=== PATIENT | female | born 1990 | race Caucasian/White ===

== ENCOUNTER 2018-04-28 14:39 | Emergency (ER) | payer SELFPAY ==
--- NOTE | 2018-04-28 15:06 | ER Document Report ---
ED Psych Disorder / Suicide - General TRAVEL OUTSIDE OF THE [place] IN LAST 30 DAYS: No <MORALES TRACEY - Last Filed: 04/28/18 15:04> <BLADEJE MARQUIS - Last Filed: 04/28/18 17:58> <KENNETH HANSON - Last Filed: 04/28/18 20:08> - General Chief Complaint: Psych Problem Stated Complaint: PSYCH EVAL/SUICIDAL IDEATION Time Seen by Provider: 04/28/18 15:03 Notes: Chief complaint: Suicidal History of complain:( obtained from----patient) 27 years old female with a history of depression and previous history of suicidal ideation, was started with Prozac recently and last 2 days not feeling well today feeling like want to end her life. Feeling depressed deeply. I want to end her life by taking some pills. Therefore she was brought to the ED. Onset: As above gradual Duration: Last 2 days Severity: Severe Quality: Not applicable Context: Possibly medication induced Exacerbating factor and relieving factors: None REVIEW OF SYSTEMS: CONSTITUTIONAL : Denies fever, chills, or sweats. Denies recent illness. EENT: Denies eye, ear, throat, or mouth pain or symptoms. Denies nasal or sinus congestion or discharge. Denies throat, tongue, or mouth swelling or difficulty swallowing. CARDIOVASCULAR: Denies chest pain. Denies palpitations or racing or irregular heart beat. Denies ankle edema. RESPIRATORY: Denies cough, cold, or chest congestion. Denies shortness of breath, difficulty breathing, or wheezing. GASTROINTESTINAL: Denies distention. Denies nausea, vomiting, or diarrhea. Denies blood in vomitus, stools, or per rectum. Denies black, tarry stools. Denies constipation. GENITOURINARY: Denies difficulty urinating, painful urination, burning, frequency, blood in urine, or discharge. FEMALE GENITOURINARY: Denies vaginal bleeding, heavy or abnormal periods, irregular periods. Denies vaginal discharge or odor. MUSCULOSKELETAL: Denies back or neck pain or stiffness. Denies joint pain or swelling. SKIN: Denies rash, lesions or sores. HEMATOLOGIC : Denies easy bruising or bleeding. LYMPHATIC: Denies swollen, enlarged glands. NEUROLOGICAL: Denies confusion or altered mental status. Denies passing out or loss of consciousness. Denies dizziness or lightheadedness. Denies headache. Denies weakness or paralysis or loss of use of either side. Denies problems with gait or speech. Denies sensory loss, numbness, or tingling. Denies seizures. PSYCHIATRIC: Denies anxiety or stress. Denies depression, suicidal ideation, or homicidal ideation. ALL OTHER SYSTEMS REVIEWED AND NEGATIVE. PHYSICAL EXAMINATION: GENERAL: Well-appearing, well-nourished and in no acute distress. HEAD: Atraumatic, normocephalic. EYES: Pupils equal round and reactive to light, extraocular movements intact, conjunctiva are normal. ENT: Nares patent, oropharynx clear without exudates. Moist mucous membranes. NECK: Normal range of motion, supple without lymphadenopathy LUNGS: Breath sounds clear to auscultation bilaterally and equal. No wheezes rales or rhonchi. HEART: Regular rate and rhythm without murmurs ABDOMEN: Soft, nontender, nondistended abdomen. No guarding, no rebound. No masses appreciated. Examination of genitals-deferred Musculoskeletal: Normal range of motion, no pitting or edema. No cyanosis. NEUROLOGICAL: Cranial nerves grossly intact. Normal speech, normal gait. Normal sensory, motor exams PSYCH: Appears depressed, suicidal, no auditory or visual hallucination, appears to be nervous and anxious. SKIN: Warm, Dry, normal turgor, no rashes or lesions noted. Dictation was performed using [employer] voice recognition software (MORALES TRACEY) Patient says that she suffered from depression for at least 10 years. She is now having suicidal ideation which comes and goes. She recently started taking Lexapro. Patient denies any other symptoms. No vomiting or diarrhea. No chest pains. Denies shortness of breath or difficulty breathing. Last menstrual cycle was about 25 days ago. History of migraine headaches with some headache now. (KENNETH HANSON) - Related Data Allergies/Adverse Reactions: cephalexin [Cephalexin] Allergy (Severe, Verified 06/27/14 22:59) Hives Cephalosporins Allergy (Severe, Verified 06/27/14 22:59) Hives Past Medical History - Social History Family History: Reviewed & Not Pertinent - Past Medical History Cardiac Medical History: Denies: Hx Coronary Artery Disease, Hx Heart Attack, Hx Hypertension Pulmonary Medical History: Denies: Hx Asthma, Hx Bronchitis, Hx COPD, Hx Pneumonia Neurological Medical History: Reports: Hx Migraine. Denies: Hx Cerebrovascular Accident Musculoskeltal Medical History: Denies Hx Arthritis Past Surgical History: Reports: Hx Genitourinary Surgery - Immunizations Hx Diphtheria, Pertussis, Tetanus Vaccination: Yes <MORALES TRACEY - Last Filed: 04/28/18 15:04> - Social History Smoking Status: Unknown if Ever Smoked Family History: Reviewed & Not Pertinent Psychiatric Medical History: Reports: Hx Depression <KENNETH HANSON - Last Filed: 04/28/18 20:08> Review of Systems <MORALES TRACEY - Last Filed: 04/28/18 15:04> <BLADEJE MARQUIS - Last Filed: 04/28/18 17:58> <KENNETH HANSON - Last Filed: 04/28/18 20:08> - Review of Systems Notes: REVIEW OF SYSTEMS: CONSTITUTIONAL : Denies fever. EENT: Denies eye, ear, nose or mouth or throat pain or other symptoms. CARDIOVASCULAR: Denies chest pain. RESPIRATORY: Denies cough, chest congestion, or shortness of breath. GASTROINTESTINAL: Denies abdominal pain or nausea, vomiting, or diarrhea. GENITOURINARY: Denies difficulty or painful urinating, urinary frequency, blood in urine. MUSCULOSKELETAL: Denies back or neck pain. Denies joint pain or swelling. SKIN: Denies rash or skin lesions. NEUROLOGICAL: Denies LOC or altered mental status. Denies headache. Denies sensory loss or motor deficits. ALL OTHER SYSTEMS REVIEWED AND NEGATIVE. (KENNETH HANSON) Physical Exam <MORALES TRACEY - Last Filed: 04/28/18 15:04> <VANESSAJE - Last Filed: 04/28/18 17:58> - Vital signs Interpretation: Hypertensive - Diastolic pressure recorded at 113 and I doubt that is accurate. Her blood pressure at discharge is 126/80. <KENNETH HANSON - Last Filed: 04/28/18 20:08> - Vital signs Vitals: Temp Pulse Resp BP Pulse Ox 98.9 F 74 18 138/112 H 98 04/28/18 14:42 04/28/18 14:42 04/28/18 14:42 04/28/18 14:42 04/28/18 14:42 - Notes Notes: PHYSICAL EXAMINATION: GENERAL: Well-appearing, in no acute distress. Appears to be somewhat depressed. Denies suicidal feeling at this moment. Vital signs are normal with the exception of an likely abnormal recorded blood pressure at triage. HEAD: Atraumatic, normocephalic. EYES: Pupils equal round and reactive to light, extraocular movements intact. ENT: oropharynx clear without exudates. Moist mucous membranes. NECK: Normal range of motion, supple. LUNGS: Breath sounds clear and equal bilaterally. HEART: Regular rate and rhythm without murmurs. ABDOMEN: Soft, nontender. No guarding or rebound. No masses. BACK: No tenderness throughout entire back. EXTREMITIES: Normal range of motion without pain. NEUROLOGICAL: Normal speech, normal gait. Normal sensory, motor, and reflex exams. Awake, alert, and oriented x3. Cranial nerves normal. PSYCH: Seems to be depressed. Does not seem to be suicidal at this time. SKIN: Warm, dry, no rashes. (KENNETH HANSON) Course - Laboratory Result Diagrams: 04/28/18 15:47 04/28/18 15:47 <JE MENDEZ - Last Filed: 04/28/18 17:58> - Laboratory Result Diagrams: 04/28/18 15:47 04/28/18 15:47 <KENNETH HANSON - Last Filed: 04/28/18 20:08> - Vital Signs Vital signs: Temp Pulse Resp BP Pulse Ox 98.9 F 61 16 126/80 H 96 04/28/18 14:42 04/28/18 18:29 04/28/18 18:29 04/28/18 18:29 04/28/18 18:29 - Laboratory Laboratory results interpreted by me: 04/28/18 04/28/18 15:47 15:47 WBC 11.0 H Salicylates < 1.0 L Acetaminophen < 10 L Discharge <MORALES TRACEY - Last Filed: 04/28/18 15:04> <JE MENDEZ - Last Filed: 04/28/18 17:58> <KENNETH HANSON - Last Filed: 04/28/18 20:08> - Discharge Clinical Impression: Depression, Anxiety, Suicidal ideation Condition: Stable Disposition: HOME, SELF-CARE Additional Instructions: Anxiety: The physician feels that some of your health problems are being caused by anxiety. Anxiety affects your health in many ways. Anxiety alone can cause palpitations, sweats, chest pains, abdominal pains, shortness of breath, and headaches. It contributes to ulcer disease, high blood pressure, irritable bowel syndrome, and has been shown to cause flare-ups of many other diseases. Anxiety is not a simple disorder to treat. If the anxiety is due to recent life stresses, you may simply need time to "work through" the changes. If the anxiety is due to an underlying unhappiness with yourself or due to psychiatric disturbance, professional help will be needed. Your physician can refer you for further help if needed. Anti-anxiety medication is occasionally given if the stress is acute or if you are having trouble sleeping. Chronic or frequent use of these medications is not a good idea because the body becomes reliant on it, preventing you from dealing with life's normal stresses. DEPRESSION: Your evaluation reveals that you have mental depression. While symptoms may be vague, they often include disturbance of sleep, fatigue, loss of appetite , and general loss of interest in life. While depression may be a side effect of drugs, or a reaction to a major change in your life, many cases have no known cause. If depression is acute, and related to a major loss in your life, you can expect it to clear completely with time. If you have been depressed a long time , are prone to repeated bouts of depression or low mood, or have been thinking of suicide, get help. Depression can be treated with anti-depressant medication and counselling. Long-term depression will often take a few weeks to clear, even with appropriate medication. Follow-up care is important. SUICIDAL IDEATION: Suicidal ideation is a common medical term for thoughts about suicide, which may be as detailed as a formulated plan, without the suicidal act itself. Although most people who undergo suicidal ideation do not commit suicide, some go on to make suicide attempts. The range of suicidal ideation varies greatly from fleeting to detailed planning, role playing, and unsuccessful attempts. While thoughts about suicide are common, most people do not carry out serious actions to commit suicide. Based upon your evaluation and discussion with you, we do not believe you are currently at risk to act upon your thoughts of suicide. You have agreed to return to the Emergency Department, at any time , if you feel inclined to act upon your suicidal thoughts. FOLLOW-UP CARE: You have been provided with scripts for alternative medications. You should take these as prescribed. you should follow up with an outpatient psychiatric provider (resource sheet provided) or at the very least with your Internal Medicine provider from [facility]. If you experience worsening or a significant change in your symptoms, notify the physician immediately, utilize mobile crisis or return to the Emergency Department at any time for re- evaluation. Prescriptions: Buspirone HCl [Buspar 10 mg Tablet] 10 mg PO QHS #10 tablet Buspirone HCl [Buspar 5 mg Tablet] 1 tab PO QAM #10 tab Citalopram Hydrobromide [Celexa 20 mg Tablet] 20 mg PO DAILY #10 tablet Referrals: [facility] [Provider Group] - Follow up as needed
[2018-04-28] MEDS ORDERED: LORAZEPAM 1 MG TABLET PO SCH ×3 (15:15→18:00)
[2018-04-28] MEDS ORDERED: LORAZEPAM 1 MG TABLET PO ONE (16:08)
[2018-04-28] MEDS ORDERED: LORAZEPAM 1 MG TABLET PO PRN (16:09)
[2018-04-28 16:20] LABS: ABSOLUTE EOSINOPHILS # (AUTO) 0.1 10^3/uL (0.0-0.6); ABSOLUTE LYMPHOCYTES (AUTO) 3.6 10^3/uL (0.5-4.7); ABSOLUTE MONOCYTES (AUTO) 0.7 10^3/uL (0.1-1.4); ABSOLUTE NEUT (AUTO) 6.6 10^3/uL (1.7-8.2); BASOPHILS % (AUTO) 0.4 % (0-2); EOSINOPHILS % (AUTO) 1.2 % (0-6); HEMOGLOBIN 14.1 g/dL (12.0-15.5); LYMPHOCYTES % (AUTO) 32.3 % (13-45); MEAN CORPUSCULAR HEMOGLOBIN 29.6 pg (27.0-33.4); MEAN CORPUSCULAR HGB CONC 34.4 g/dL (32.0-36.0); MEAN CORPUSCULAR VOLUME 86 fl (80-97); MONOCYTES % (AUTO) 6.4 % (3-13); PLATELET COUNT 362 10^3/uL (150-450); RED BLOOD COUNT 4.77 10^6/uL (3.72-5.28); RED CELL DISTRIBUTION WIDTH 11.7 % (11.5-14.0); SEGMENTED NEUTROPHILS % (AUTO) 59.7 % (42-78); TOTAL CELLS COUNTED % (AUTO) 100 %
[2018-04-28 16:26] LABS: APPEARANCE,URINE SLIGHTLY-CLOUDY; BILIRUBIN,URINE NEGATIVE (NEGATIVE); COLOR,URINE YELLOW; GLUCOSE, URINE NEGATIVE (NEGATIVE); KETONES,URINE NEGATIVE (NEGATIVE); LEUKOCYTE ESTERASE,URINE NEGATIVE (NEGATIVE); NITRITE,URINE NEGATIVE (NEGATIVE); PROTEIN,URINE NEGATIVE (NEGATIVE); URINE SPECIFIC GRAVITY 1.021; UROBILINOGEN,URINE NEGATIVE mg/dL (<2.0)
[2018-04-28 16:33] LABS: ALKALINE PHOSPHATASE 61 U/L (38-126); ASPARTATE AMINO TRANSFERASE 16 U/L (14-36); BILIRUBIN,DIRECT 0.3 mg/dL (0.0-0.4); BILIRUBIN,TOTAL 0.3 mg/dL (0.2-1.3); BLOOD UREA NITROGEN 11 mg/dL (7-20); CALCIUM 9.7 mg/dL (8.4-10.2); CARBON DIOXIDE 27 mmol/L (22-30); CHLORIDE 107 mmol/L (98-107); GLUCOSE 80 mg/dL (75-110); TOTAL PROTEIN 6.6 g/dL (6.3-8.2)
[2018-04-28 16:37] LABS: URINE AMPHETAMINES SCREEN NEGATIVE; URINE BARBITURATES SCREEN NEGATIVE; URINE BENZODIAZEPINES SCREEN NEGATIVE; URINE COCAINE SCREEN NEGATIVE; URINE MARIJUANA (THC) SCREEN NEGATIVE; URINE METHADONE SCREEN NEGATIVE; URINE PHENCYCLIDINE SCREEN NEGATIVE
--- NOTE | 2018-04-28 16:41 | PSYCHOLOGICAL NOTE ---
Psych Note - Psych Note Psych Note: Reason for consult: Increased Depression, Anxiety, SI since starting Lexapro last Friday Contact permission: Mother Alycai and Aunt at bedside Patient is a 27 year old female who presented to the ED today via mother upon [facility] recommendation for increased SI, paranoia and anxiety after starting Lexapro Friday (04/24/18). Patient she was prescribed Lexapro 20MG QHS from [facility] Randi Schwartz at [facility] Friday. Since that time she has taken it as direct until Friday when she took half of a pill due to not liking how it had been making her feel. She acknowledged the half pill did nothing for her so last night she took a whole pill and 2 Benadryl. She described how she was feeling as frantic and panicked, like she needs to do something, has had paranoid days where she thinks people are mad at her or talking about her and has woken up at night thinking someone was in the house to murder her. She noted she went to the [facility] due to having a history of depression that is not constant, the last few weeks it had increased, she had been getting frequent headaches (has history of migraines and prescribed propranolol), random vomiting, feeling really down and increased SI (thoughts of OD on propranolol, never taken action). She stated she has previously been prescribed Zoloft (took once, felt frantic and panicked, not in control, outside of body, which she said is how she feels now as well), Effexor and Wellbutrin. She admitted she never took any of them for very long. She denied previous Hospitalizations. She stated her issue now with respect to going to a provider for is she doesnt get insurance until May since she just started a new job. She identified a current stress is getting soon. Patient was alert and oriented to person, place, time and situation. Mood was anxious with congruent affect as evidenced by a little fidgety at first but did calm down (had been administered Ativan 2MG PO). She denied current SI/HI, admitted to thoughts of OD on her propranolol but NEVER taking action and denied history of attempts. She did not appear to be responding to internal stimuli as evidenced by good eye contact, answering questions appropriately when addressed, staying on topic and carrying on dialogue conversation. Thought processes were linear and organized. Conversational speech was within normal limits for rate, tone and prosody. Intellectual abilities are estimated to be average. Insight, judgment and impulse control were fair as evidenced by ability to process/discuss thoughts and feelings and clear/vivid description of what she was experiencing since starting Lexapro. Patients motherAlycia, at bedside. Patient gave verbal consent to speak freely in front of mother. Mother confirmed or agreed with everything patient said. She allowed patient to do the talking. She identified no significant family history of MH. She admitted she (mother) had been prescribed Prozac for PMS. She acknowledged herself, Aunt and fianc are natural supports who will be involved and have increased supervision/monitoring. Patient and mother agreed to allow these natural supports be in control of medications (patients, other peoples in the home, O-T-C medications) and administration. Diagnosis: 311 (F32.9) Unspecified Depressive Disorder (may be situational and related to upcoming wedding) 300.00 (F41.9) Unspecified Anxiety Disorder (may be situational and related to upcoming wedding) Impression/Plan: Patient is cleared from acute psychiatric services. She was just started on Lexapro Friday (04/24/18) from [facility]'s Internal Medicine due to having increased headaches, random vomiting, feeling really down and SI. However after taking the Lexapro the past 4 days she reported feeling "frantic, unable to sit still like she needs to do something, paranoia such as thinking people are mad at her or talking about her, and waking up in the middle of the night thinking someone was in her room trying to kill her." Plan is to stop Lexapro and provide script for another medication. Mother present (patient gave verbal permission to talk in front of mother) and noted she (mother), Aunt and patient's fiance are natural supports and available for supervision. Mother agreed for her, Aunt and fiance to be in control of all medications (to include over the counter ones in the home) and administration. Provided outpatient resource sheet to patient and mother with emphasis on both MCM numbers (provided psychoeducation on how MCM works) as well as potential mental health providers for medication management ([facility] and [facility] highlighted since no insurance currently). Consulted with Dr. Vogt regarding the management and care of patient. ED Physician in agreement with recommendations. Medication recommendations made by the psychiatric medical provider, Dr. Andrew SHAIKH, include: Discontinue Lexapro 20MG at night for depression/anxiety Add Celexa 20MG daily for depression/anxiety Add Buspar 5MG in the morning for depression/anxiety Add Buspar 10MG at night for depression/anxiety/sleep
[2018-04-28 16:49] LABS: ALANINE AMINOTRANSFERASE 22 U/L (9-52); ANION GAP 8 (5-19); POTASSIUM 3.9 mmol/L (3.6-5.0); SODIUM 142.3 mmol/L (137-145)
[2018-04-28 16:50] LABS: ACETAMINOPHEN < 10 ug/mL (10-30); ALCOHOL < 10 mg/dL (NONE DETECTED); SALICYLATE < 1.0 mg/dL (2.0-20.0)
[2018-04-28 18:30] VITALS: BP 126/80
--- NOTE | 2018-04-28 23:43 | EKG REPORT ---
SEVERITY:- NORMAL ECG - SINUS RHYTHM : Confirmed by: Fern Hunter 28-Apr-2018 23:42:39
== END 2018-04-28 18:30 | disposition home or self-care (01) ==
LOC: ER 14:39
DX: F32.9 Major depressive disorder, single episode, unspecified (principal); F41.9 Anxiety disorder, unspecified; R45.851 Suicidal ideations; Z88.1 Allergy status to other antibiotic agents
CPT/HCPCS: 36415; 80053; 80307; 81001; 84703; 85025; 93005; 93010; 99285